=== PATIENT | female | born 1995 | race Hispanic/Latino ===

== ENCOUNTER 2022-09-07 02:24 | Emergency (ER) | payer OTHER ==
[~2022-09-07] VITALS: Ht 162.6 cm; Wt 91.2 kg
[2022-09-07] MEDS ORDERED: ONDANSETRON HCL INJ 2MG/ML 2ML 2 MG/ML VIAL IV STA (02:55)
[2022-09-07] MEDS ORDERED: SODIUM CHLORIDE 0.9% 1000ML 1,000 ML IV ONE (03:00)
[2022-09-07] MEDS ORDERED: FAMOTIDINE 20 MG/2 ML VIAL IV STA (03:08)
[2022-09-07] MEDS ORDERED: SODIUM CHLORIDE 0.9% 1000ML 1,000 ML ONE (03:26)
[2022-09-07] MEDS ORDERED: CEFTRIAXONE 1 GM VIAL IM ONE (03:30)
[2022-09-07] MEDS ORDERED: FAMOTIDINE 20 MG/2 ML VIAL IV ONE (03:40)
[2022-09-07] MEDS ORDERED: CEFTRIAXONE 1 GM VIAL IV ONE (03:45)
[2022-09-07] MEDS ORDERED: CEFTRIAXONE 1 GM VIAL ONE (03:49)
[2022-09-07] MEDS ORDERED: PEPCID20 MG PO (04:05)
[2022-09-07] MEDS ORDERED: KEFLEX125 MG/5 M PO (04:06)
[2022-09-07 04:16] VITALS: BP 112/76
== END 2022-09-07 04:16 | disposition home or self-care (01) ==
LOC: FSED 02:49
DX: O23.41 Unspecified infection of urinary tract in pregnancy, first trimester (principal); K29.70 Gastritis, unspecified, without bleeding; R10.13 Epigastric pain; K21.9 Gastro-esophageal reflux disease without esophagitis
CPT/HCPCS: 80053; 81003; 81025; 82553; 84484; 85025; 93005; 96374; 99283; J0696; J7030